=== PATIENT | male | born 1970 | race African-American/Black ===

== ENCOUNTER 2018-04-09 06:58 | Emergency (ER) | payer MEDICARE, MEDICAID ==
[~2018-04-09] VITALS: Ht 177.8 cm; Wt 67.3 kg
[~2018-04-09 06:58] MED LIST: DICL50PO5 PO; NORT25 PO; SUMA6VIA18 SQ
[2018-04-09 07:10] VITALS: BP 121/94
[2018-04-09] MEDS ORDERED: VERA120 PO (07:15)
[2018-04-09] MEDS ORDERED: LIDOCAINE 1% 10 ML VIAL INJ ONE (07:45)
== END 2018-04-09 08:15 | disposition home or self-care (01) ==
LOC: EMS 06:58
DX: L03.011 Cellulitis of right finger (principal); Z79.899 Other long term (current) drug therapy; Z86.011 Personal history of benign neoplasm of the brain
CPT/HCPCS: 10060; 99283; J3490

== ENCOUNTER 2018-04-26 17:53 | Emergency (ER) | payer MEDICARE, MEDICAID ==
[~2018-04-26] VITALS: Ht 177.8 cm; Wt 68.2 kg
[~2018-04-26 17:53] MED LIST changes: -DICL50PO5 PO; -NORT25 PO; -SUMA6VIA18 SQ; +VERA120 PO
[2018-04-26] MEDS ORDERED: BACITRACIN 0.9 GM PACKET OINTMENT TP ONE (18:30)
[2018-04-26] MEDS ORDERED: LIDOCAINE 1% 10 ML VIAL INJ ONE (18:30)
[2018-04-26 19:23] VITALS: BP 130/80
== END 2018-04-26 19:29 | disposition home or self-care (01) ==
LOC: EMS 17:54
DX: L03.011 Cellulitis of right finger (principal); G89.29 Other chronic pain; F12.90 Cannabis use, unspecified, uncomplicated
CPT/HCPCS: 10060; 99283; J3490